=== PATIENT | female | born 1960 | race African-American/Black ===

== ENCOUNTER → 2017-04-22 | Outpatient (CLI) | payer OTHER ==
--- NOTE | 2017-04-22 09:12 | WOMENS IMAGING REPORT ---
EXAM DESCRIPTION: BONE DENSITY HIP/SPINE COMPLETED DATE/TIME: 04/22/2017 9:05 am REASON FOR STUDY: AGE-RELATED OSTEOPOROSIS; M81.0 M81.0 AGE-RELATED OSTEOPOROSIS W/O CURRENT PATHOL OGICAL FRAC COMPARISON: 04/11/2015. TECHNIQUE: Dual-Energy X-ray Absorptiometry (DEXA) of the AP Spine and Hip. LIMITATIONS: None. FINDINGS: LUMBAR SPINE: The bone mineral density (BMD) measured from L1-L4 in the AP projection correlates with a T-score of -3.7, which is osteoporosis as defined by the World Health Organization. HIP: The bone mineral density (BMD) measured in the left hip correlates with a T-score of -1.6, which is o steopenia as defined by the World Health Organization. IMPRESSION: 1. LUMBAR SPINE: OSTEOPOROSIS. 2. HIP: OSTEOPENIA. COMMENT: The World Health Organization defines low BMD as follows: T-score: Normal: Greater than -1.0 Osteopenia: Between -1.0 and -2.5 Osteoporosis: Less than -2.5 without fractures Established osteoporosis: Less than -2.5 with fractures In general, you may wish to consider: Diagnosis Treatment Follow-up DEXA Normal BMD Prevention 2-3 years Osteopenia Prevention/Therapy 1-2 years Osteoporosis Therapy Yearly TECHNICAL DOCUMENTATION: JOB ID: [id number]- All Rights Reserved
== END ==
LOC: WI 08:19
PROVIDERS: ATTEND Internal Medicine Hematology & Oncology
DX: M81.0 Age-related osteoporosis without current pathological fracture (principal)
CPT/HCPCS: 77080

== ENCOUNTER 2018-02-16 13:05 | Inpatient (IN) | payer OTHER ==
--- NOTE | 2018-02-16 15:07 | ER Document Report ---
ED General - General Mode of Arrival: Ambulatory Information source: Patient Cannot obtain history due to: Other - poor historian TRAVEL OUTSIDE OF THE [place] IN LAST 30 DAYS: No <ADI BECKFORD - Last Filed: 02/16/18 15:09> <TREV PEREZ - Last Filed: 02/18/18 11:59> - General Chief Complaint: Shortness Of Breath Stated Complaint: SHORTNESS OF BREATH Time Seen by Provider: 02/16/18 13:35 Notes: Patient is a 57-year-old female that presents to the emergency department today with complaints of feeling generally weak with associated shortness of breath over the last 3 weeks. Patient mentions that she has a history of breast cancer and she has been in remission for x1-2 years. Patient states she saw her oncologist (Dr. Yung) this week and she did blood work and her hemoglobin was high. Patient goes on to mention multiple times that she is out of her Adderall. Patient states that her primary care physician retired so she cannot get a refill. Patient went to an urgent care today prior to arrival here to get an Adderall prescription and was told to come here for her other symptoms. Patient states she "cannot write as pretty as she used to and has trouble remembering things" since being off of her Adderall. Patient denies chest pain. (ADI BECKFORD) - Related Data Allergies/Adverse Reactions: acetaminophen [From Percocet] Allergy (Severe, Verified 02/16/18 20:59) itching, nightmares oxycodone HCl [From Percocet] Allergy (Severe, Verified 02/16/18 20:59) itching, nightmares ppd converter Allergy (Severe, Uncoded 02/16/18 20:59) Past Medical History - General Information source: Patient Cannot obtain history due to: Other - poor historian - Social History Smoking Status: Never Smoker Frequency of alcohol use: None Drug Abuse: None Lives with: Family Family History: Reviewed & Not Pertinent Malignancy Medical History: Reports: Hx Breast Cancer Surgical Hx: Negative - Immunizations Hx Diphtheria, Pertussis, Tetanus Vaccination: Yes <ADI BECKFORD - Last Filed: 02/16/18 15:09> Review of Systems - Review of Systems Constitutional: See HPI, Weakness EENT: No symptoms reported Cardiovascular: denies: Chest pain Respiratory: See HPI, Short of breath Gastrointestinal: No symptoms reported Genitourinary: No symptoms reported Female Genitourinary: No symptoms reported Musculoskeletal: No symptoms reported Skin: No symptoms reported Hematologic/Lymphatic: No symptoms reported Neurological/Psychological: See HPI -: Yes All other systems reviewed and negative <ADI BECKFORD - Last Filed: 02/16/18 15:09> Physical Exam <ADI BECKFORD - Last Filed: 02/16/18 15:09> <TREV PEREZ Tabby - Last Filed: 02/18/18 11:59> - Vital signs Vitals: Temp Pulse Resp BP Pulse Ox 98.3 F 98 16 132/79 H 99 02/16/18 13:22 02/16/18 13:22 02/16/18 13:22 02/16/18 13:22 02/16/18 13:22 - Notes Notes: Physical Exam: General: Alert, very poor historian. HEENT: Normocephalic. Atraumatic. PERRL. Extraocular movements intact. Oropharynx clear. Neck: Supple. Non-tender. Respiratory: No respiratory distress. Clear and equal breath sounds bilaterally. Cardiovascular: Regular rate and rhythm. Abdominal: Normal Inspection. Non-tender. No distension. Normal Bowel Sounds. Back: Non-tender. No deformity or step off. Extremities: Moves all four extremities. Upper extremities: Normal inspection. Normal ROM. Lower extremities: Normal inspection. No edema. Normal ROM. Neurological: Normal cognition. AAOx4. Normal speech. Psychological: Appears anxious, intermittently tremulous. Skin: Warm. Dry. Normal color. (ADI BECKFORD) Course <ADI BECKFORD - Last Filed: 02/16/18 15:09> - Laboratory Result Diagrams: 02/17/18 06:20 02/17/18 06:20 - EKG Interpretation by Or EKG shows normal: Sinus rhythm Rate: Normal Rhythm: NSR - normal intervals <TREV PEREZ Tabby - Last Filed: 02/18/18 11:59> - Re-evaluation Re-evalutation: 02/16/18 19:28 Patient found to have thrombocytopenia as well as anemia. 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 Discussed this case with Dr. 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 Patient will be admitted to Dr. Ballard service with Dr. Beverly to follow. (TREV PEREZ) - Vital Signs Vital signs: Temp Pulse Resp BP Pulse Ox 98.6 F 88 16 103/52 L 100 02/17/18 04:45 02/17/18 10:02 02/17/18 11:00 02/17/18 10:01 02/17/18 11:00 - Laboratory Laboratory results interpreted by me: 02/16/18 02/16/18 02/16/18 16:46 16:46 16:46 RBC 2.34 L Hgb 7.7 L Hct 22.5 L RDW 21.1 H Plt Count 10 L* Retic Count (auto) 10.51 H Absolute Retic 0.246 H Est GFR (Non-Af Amer) 58 L Ferritin Total Bilirubin 2.1 H Direct Bilirubin 0.5 H AST 50 H Urine Blood Urine Urobilinogen Ur Leukocyte Esterase 02/16/18 02/16/18 16:46 19:00 RBC Hgb Hct RDW Plt Count Retic Count (auto) Absolute Retic Est GFR (Non-Af Amer) Ferritin 439.00 H Total Bilirubin Direct Bilirubin AST Urine Blood SMALL H Urine Urobilinogen 2.0 H Ur Leukocyte Esterase TRACE H Critical Care Note - Critical Care Note Total time excluding time spent on procedures (mins): 40 <TREV PEREZ - Last Filed: 02/18/18 11:59> Discharge <ADI BECKFORD - Last Filed: 02/16/18 15:09> - Discharge Admitting Provider: Elio Unit Admitted: Telemetry <TREV PEREZ - Last Filed: 02/18/18 11:59> - Discharge Clinical Impression: Thrombocytopenia, Lung tumor Anemia Qualifiers: Anemia type: other cause Other causes of anemia: other cause, not classified Qualified Code(s): D64.89 - Other specified anemias Condition: Fair Disposition: [facility] Scribe Attestation: 02/18/18 11:59 I personally performed the services described in the documentation, reviewed and edited the documentation which was dictated to the scribe in my presence, and it accurately records my words and actions. (TREV PEREZ) Scribe Documentation - Scribe Written by Jasmynee:: Curtis Mcclelland, 02/16/2018 1514 acting as scribe for :: Eamon <ADI BECKFORD - Last Filed: 02/16/18 15:09>
[2018-02-16] MEDS ORDERED: NORMAL SALINE 1000 ML 1,000 ML IV ONE (15:11)
--- NOTE | 2018-02-16 17:02 | EKG REPORT ---
SEVERITY:- ABNORMAL ECG - SINUS RHYTHM LEFT VENTRICULAR HYPERTROPHY : Confirmed by: Zahida Andrews MD 16-Feb-2018 17:01:42
[2018-02-16 17:35] LABS: HEMATOCRIT 22.5 % (36.0-47.0); MEAN CORPUSCULAR HEMOGLOBIN 33.1 pg (27.0-33.4); MEAN CORPUSCULAR HGB CONC 34.4 g/dL (32.0-36.0); MEAN CORPUSCULAR VOLUME 96 fl (80-97); RED BLOOD COUNT 2.34 10^6/uL (3.72-5.28); RED CELL DISTRIBUTION WIDTH 21.1 % (11.5-14.0); WHITE BLOOD COUNT 8.8 10^3/uL (4.0-10.5)
[2018-02-16 17:49] LABS: ALANINE AMINOTRANSFERASE 28 U/L (9-52); ALBUMIN 4.1 g/dL (3.5-5.0); ALKALINE PHOSPHATASE 59 U/L (38-126); ANION GAP 10 (5-19); ASPARTATE AMINO TRANSFERASE 50 U/L (14-36); BILIRUBIN,DIRECT 0.5 mg/dL (0.0-0.4); BILIRUBIN,TOTAL 2.1 mg/dL (0.2-1.3); BLOOD UREA NITROGEN 15 mg/dL (7-20); CALCIUM 8.8 mg/dL (8.4-10.2); CARBON DIOXIDE 28 mmol/L (22-30); CHLORIDE 106 mmol/L (98-107); GLUCOSE 84 mg/dL (75-110); SODIUM 143.5 mmol/L (137-145); TOTAL PROTEIN 7.3 g/dL (6.3-8.2)
[2018-02-16 18:05] LABS: HEMOGLOBIN 7.7 g/dL (12.0-15.5); PLATELET COUNT 10 10^3/uL (150-450)
[2018-02-16 18:07] LABS: ABSOLUTE LYMPHOCYTES# (MANUAL) 2.6 10^3/uL (0.5-4.7); ABSOLUTE MONOCYTES # (MANUAL) 0.5 10^3/uL (0.1-1.4); ABSOLUTE NEUTROPHILS# (MANUAL) 5.6 10^3/uL (1.7-8.2); ANISOCYTOSIS 3+; BASOPHILS % (MANUAL) 1 % (0-2); EOSINOPHILS % (MANUAL) 0 % (0-6); LYMPHOCYTES % (MANUAL) 29 % (13-45); MONOCYTES % (MANUAL) 6 % (3-13); PLATELET COMMENT DECREASED; POIKILOCYTOSIS 1+; POLYCHROMASIA 1+; SCHISTOCYTES 2+; SEGMENTED NEUTROPHILS % (MAN) 64 % (42-78); TOTAL CELLS COUNTED 100
--- NOTE | 2018-02-16 18:50 | RADIOLOGY REPORT (SQ) ---
EXAM DESCRIPTION: CT HEAD COMBO COMPLETED DATE/TIME: 02/16/2018 6:16 pm REASON FOR STUDY: hx of cancer, forgetfulness, problems writing COMPARISON: None. TECHNIQUE: Axial images acquired through the brain without and with intravenous contrast. Images re viewed with bone, brain and subdural windows. Additional sagittal and coronal reconstructions were g enerated. Images stored on PACS. All CT scanners at this facility use dose modulation, iterative reconstruction, and/or weight based d osing when appropriate to reduce radiation dose to as low as reasonably achievable (ALARA). [facility]: Dose Right [facility]: CareDose [facility]: Dose Right [facility]: Teradose 4D [facility]: [employer] CONTRAST TYPE AND DOSE: 77 mL Omnipaque 350- low osmolar. RENAL FUNCTION: BUN 15 creatinine 1 RADIATION DOSE: CT Rad equipment meets quality standard of care and radiation dose reduction techniq ues were employed. CTDIvol: 53.2 mGy. DLP: 1097 mGy-cm.. LIMITATIONS: None. FINDINGS: VENTRICLES: Normal size and contour. CEREBRUM: No masses. No hemorrhage. No midline shift. Normal muniz/white matter differentiation. No ev idence for acute infarction. No enhancing lesions. CEREBELLUM: No masses. No hemorrhage. No alteration of density. No evidence for acute infarction. No enhancing lesions. EXTRA-AXIAL SPACES: No fluid collections. No enhancing lesions. ORBITS AND GLOBE: No intra- or extraconal masses. Normal contour of globe without masses. CALVARIUM: No fracture. PARANASAL SINUSES: No fluid or mucosal thickening. SOFT TISSUES: No enhancing lesions. Normal vasculature. OTHER: No other significant finding. IMPRESSION: NORMAL BRAIN CT WITHOUT AND WITH CONTRAST. EVIDENCE OF ACUTE STROKE: NO. TECHNICAL DOCUMENTATION: JOB ID: [id number] Quality ID # [id number]: Final reports with documentation of one or more dose reduction techniques (e.g., Au tomated exposure control, adjustment of the mA and/or kV according to patient size, use of iterative reconstruction technique) 2010 [employer]- All Rights Reserved Reading location - IP/workstation name: [email or web address]
--- NOTE | 2018-02-16 19:00 | RADIOLOGY REPORT (SQ) ---
EXAM DESCRIPTION: CTA CHEST COMPLETED DATE/TIME: 02/16/2018 6:16 pm REASON FOR STUDY: SOB, hx of breast cancer COMPARISON: None. TECHNIQUE: CT scan of the chest performed using helical scanning technique with dynamic intravenous contrast injection. Images reviewed with lung, soft tissue and bone windows. Reconstructed coronal and sagittal MPR images reviewed. Additional 3 dimensional post-processing performed to develop Maximal Intensity Projection images (AK P). All images stored on PACS. All CT scanners at this facility use dose modulation, iterative reconstruction, and/or weight based d osing when appropriate to reduce radiation dose to as low as reasonably achievable (ALARA). [facility]: Dose Right [facility]: CareDose [facility]: Dose Right [facility]: Teradose 4D [facility]: [employer] CONTRAST TYPE AND DOSE: contrast/concentration: Isovue 350.00 mg/ml; Total Contrast Delivered: 77.0 ml; Total Saline Delivered: 90.0 ml Contrast bolus optimized for the pulmonary arteries. Not diagnostic for the aorta. RENAL FUNCTION: BUN 15 creatinine 1 07/07/2014 RADIATION DOSE: CT Rad equipment meets quality standard of care and radiation dose reduction techniq ues were employed. CTDIvol: 13.2 - 29.8 mGy. DLP: 962 mGy-cm. . LIMITATIONS: None. FINDINGS: LUNGS AND PLEURA: There is a spiculated 18 mm nodule in the right upper lobe posteriorly. This is larger than on the prior study. There is an area mixed ground-glass opacity in the right up per lobe with spiculations on image 32. This measures 25 mm in largest diameter. This may be slight ly more prominent. AORTA AND GREAT VESSELS: No aneurysm. Contrast bolus not optimized for the aorta. HEART: No pericardial effusion. No significant coronary artery calcifications. PULMONARY ARTERIES: No emboli visualized in the main pulmonary arteries or the segmental branches. HILAR AND MEDIASTINAL STRUCTURES: No identified masses or abnormal nodes. HARDWARE: Injection port on the left. UPPER ABDOMEN: No significant findings. Limited exam. THYROID AND OTHER SOFT TISSUES: No masses. No adenopathy. BONES: No acute or significant finding. 3D MIPS: Confirm above findings. OTHER: Right mastectomy. IMPRESSION: 1. There is no evidence of pulmonary emboli. 2. Bilateral upper lobe pulmonary masses with significant enlargement on the left. Very concerning for neoplasm. Consider PET-CT. COMMENT: Quality ID # [id number]: Final reports with documentation of one or more dose reduction techniques (e.g., Automated exposure control, adjustment of the mA and/or kV according to patient size, use of iterative reconstruction technique) TECHNICAL DOCUMENTATION: JOB ID: [id number] [employer]- All Rights Reserved Reading location - IP/workstation name: [email or web address]
[2018-02-16] MEDS ORDERED: PREDNISONE 20 MG TABLET PO ONE (19:14)
[2018-02-16 19:17] LABS: APPEARANCE,URINE CLEAR; BILIRUBIN,URINE NEGATIVE (NEGATIVE); COLOR,URINE YELLOW; GLUCOSE, URINE NEGATIVE (NEGATIVE); KETONES,URINE NEGATIVE (NEGATIVE); LEUKOCYTE ESTERASE,URINE TRACE (NEGATIVE); NITRITE,URINE NEGATIVE (NEGATIVE); PROTEIN,URINE NEGATIVE (NEGATIVE); URINE SPECIFIC GRAVITY 1.039
[2018-02-16] MEDS ORDERED: MAG HYDROX/AL HYDROX/SIMETH SUSP 30 ML UDCUP PO PRN (19:40)
[2018-02-16] MEDS ORDERED: IPRATROPIUM/ALBUTEROL 0.5-2.5 MG/3 ML AMPUL NEB PRN (19:40)
[2018-02-16] MEDS ORDERED: MAGNESIUM HYDROXIDE SUSP 30 ML UDCUP PO PRN (19:40)
[2018-02-16] MEDS ORDERED: NORMAL SALINE 1000 ML 1,000 ML IV SCH (19:45)
[2018-02-16 20:19] LABS: INTERNATIONAL RATION (INR) 1.08; PROTHROMBIN TIME 14.6 SEC (11.4-15.4)
[2018-02-16 20:27] LABS: ABSOLUTE RETICS # 0.246 10^6/uL (0.028-0.122); RETICULOCYTE COUNT (AUTO) 10.51 % (0.66-2.85)
[2018-02-16 20:33] LABS: IRON(TIBC) 92.6 ug/dL (37-170)
[2018-02-17] MEDS ORDERED: TRAZODONE HCL 50 MG TABLET PO PRN (04:38)
--- NOTE | 2018-02-17 04:38 | PDOC H&P ---
History of Present Illness Admission Date/PCP: 02/16/18 19:57 CAROL VANN MD Patient complains of: Fatigue History of Present Illness: TANA CULLEN is a 57 year old female with past medical history of ADD, anxiety and depression, breast cancer thought to be in remission for 18-24 months. She presents with 3 weeks of increasing fatigue denying bleeding, dark stools or discolored urine. Her workup reveals a hemoglobin of 7.7, platelets of only 10 AST of [address] chest with bilateral lung masses. She denies recent medication changes or homeopathic supplements. Patient's oncologist Dr. 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 Past Medical History Cardiac Medical History: Denies: Coronary Artery Disease, Myocardial Infarction, Hypertension Pulmonary Medical History: Denies: Asthma, Bronchitis, Chronic Obstructive Pulmonary Disease (COPD), Pneumonia Neurological Medical History: Denies: Seizures Malignancy Medical History: Reports: Breast Cancer Musculoskeltal Medical History: Denies: Arthritis Psychiatric Medical History: Reports: Attention Deficit Hyperactivity Disorder, Depression, General Anxiety Disorder Hematology: Reports: Anemia - hx of Past Surgical History Past Surgical History: Reports: Mastectomy Social History Information Source: Patient, Emergency Med Personnel, [facility] Lives with: Family Smoking Status: Never Smoker Frequency of Alcohol Use: Rare Drugs: None - Advance Directive Resuscitation Status: Full Code Family History Family History: Hypertension. denies: Malignancy Parental Family History Reviewed: Yes Children Family History Reviewed: Yes Sibling(s) Family History Reviewed.: Yes Medication/Allergy Home Medications: Anastrozole [Arimidex 1 mg Tablet] 1 mg PO DAILY 02/16/18 B1/B2/B3/B5/B6/Iron/Meth/Choln [Geritol Tonic] 5 ml PO MEALS 02/16/18 Bupropion HCl [Wellbutrin Xl] 300 mg PO DAILY 02/16/18 Cholecalciferol (Vitamin D3) [Vitamin D3 1000 Unit Tablet] 1,000 unit PO DAILY 02/16/18 Dextroamphetamine/Amphetamine [Adderall 30 mg Tablet] 30 mg PO 08,12 02/16/18 Ergocalciferol (Vitamin D2) [Vitamin D2] 50,000 unit PO MO@0800 02/16/18 Loratadine [Claritin 10 mg Tablet] 10 mg PO DAILYP PRN 02/16/18 Multivit-Minerals/Folic Acid [One-A-Day Vitacraves Gummie] 200 mcg PO DAILY Paroxetine Mesylate [Brisdelle] 7.5 mg PO DAILY 02/16/18 Allergies/Adverse Reactions: acetaminophen [From Percocet] Allergy (Severe, Verified 02/16/18 20:59) itching, nightmares oxycodone HCl [From Percocet] Allergy (Severe, Verified 02/16/18 20:59) itching, nightmares ppd converter Allergy (Severe, Uncoded 02/16/18 20:59) Review of Systems Constitutional: PRESENT: as per HPI, fatigue, weakness. ABSENT: chills, fever(s ), headache(s), weight gain, weight loss Eyes: ABSENT: visual disturbances Ears: ABSENT: hearing changes Cardiovascular: ABSENT: chest pain, dyspnea on exertion, edema, orthropnea, palpitations Respiratory: ABSENT: cough, hemoptysis Gastrointestinal: ABSENT: abdominal pain, constipation, diarrhea, hematemesis, hematochezia, nausea, vomiting Genitourinary: ABSENT: dysuria, hematuria Musculoskeletal: ABSENT: joint swelling Integumentary: ABSENT: rash, wounds Neurological: ABSENT: abnormal gait, abnormal speech, confusion, dizziness, focal weakness, syncope Psychiatric: PRESENT: anxiety. ABSENT: depression, homidical ideation, suicidal ideation Endocrine: ABSENT: cold intolerance, heat intolerance, polydipsia, polyuria Hematologic/Lymphatic: ABSENT: easy bleeding, easy bruising Physical Exam Vital Signs: Temp Pulse Resp BP Pulse Ox 98.4 F 92 16 99/51 L 100 02/16/18 22:17 02/16/18 22:17 02/16/18 13:22 02/16/18 22:17 02/16/18 22:17 General appearance: PRESENT: no acute distress, well-developed, well-nourished Head exam: PRESENT: atraumatic, normocephalic Eye exam: PRESENT: conjunctiva pink, EOMI, PERRLA. ABSENT: scleral icterus Ear exam: PRESENT: normal external ear exam Mouth exam: PRESENT: moist, tongue midline Neck exam: ABSENT: carotid bruit, JVD, lymphadenopathy, thyromegaly Respiratory exam: PRESENT: clear to auscultation gilberto. ABSENT: rales, rhonchi, wheezes Cardiovascular exam: PRESENT: RRR. ABSENT: diastolic murmur, rubs, systolic murmur Pulses: PRESENT: normal dorsalis pedis pul Vascular exam: PRESENT: normal capillary refill GI/Abdominal exam: PRESENT: normal bowel sounds, soft. ABSENT: distended, guarding, mass, organolmegaly, rebound, tenderness Rectal exam: PRESENT: deferred Extremities exam: PRESENT: full ROM. ABSENT: calf tenderness, clubbing, pedal edema Neurological exam: PRESENT: alert, awake, oriented to person, oriented to place , oriented to time, oriented to situation, CN II-XII grossly intact. ABSENT: motor sensory deficit Psychiatric exam: PRESENT: anxious, normal mood. ABSENT: homicidal ideation, suicidal ideation Skin exam: PRESENT: dry, intact, warm. ABSENT: cyanosis, rash Results Impressions: Chest/Abdomen CTA 02/16/18 15:11 IMPRESSION: 1. There is no evidence of pulmonary emboli. 2. Bilateral upper lobe pulmonary masses with significant enlargement on the left. Very concerning for neoplasm. Consider PET-CT. Head CT 02/16/18 15:12 IMPRESSION: NORMAL BRAIN CT WITHOUT AND WITH CONTRAST. EVIDENCE OF ACUTE STROKE: NO. Assessment & Plan - Diagnosis (1) Thrombocytopenia Is this a current diagnosis for this admission?: Yes Plan: Without active bleeding, likely secondary to ITP versus bone marrow failure. Prednisone initiated, follow-up PT/INR, hepatitis, HIV, CBC and oncology consult (2) LFT elevation Is this a current diagnosis for this admission?: Yes Plan: Follow-up hepatitis workup (3) Anemia Qualifiers: Anemia type: other cause Other causes of anemia: other cause, not classified Qualified Code(s): D64.89 - Other specified anemias Is this a current diagnosis for this admission?: Yes Plan: Likely secondary to #1, follow-up anemia workup with oncology consult. (4) Lung tumor Is this a current diagnosis for this admission?: Yes Plan: Defer to oncology. (5) Anxiety Is this a current diagnosis for this admission?: Yes Plan: Trial trazodone, consider benzodiazepine. - Time Time Spent: 50 to 70 Minutes
[2018-02-17 06:51] LABS: ANION GAP 9 (5-19); BLOOD UREA NITROGEN 11 mg/dL (7-20); CALCIUM 8.7 mg/dL (8.4-10.2); CARBON DIOXIDE 27 mmol/L (22-30); CHLORIDE 107 mmol/L (98-107); GLUCOSE 171 mg/dL (75-110); POTASSIUM 4.1 mmol/L (3.6-5.0); SODIUM 142.7 mmol/L (137-145)
[2018-02-17 07:07] LABS: HEMATOCRIT 22.7 % (36.0-47.0); MEAN CORPUSCULAR HEMOGLOBIN 32.3 pg (27.0-33.4); MEAN CORPUSCULAR HGB CONC 33.5 g/dL (32.0-36.0); MEAN CORPUSCULAR VOLUME 96 fl (80-97); RED BLOOD COUNT 2.36 10^6/uL (3.72-5.28); RED CELL DISTRIBUTION WIDTH 20.6 % (11.5-14.0); WHITE BLOOD COUNT 10.1 10^3/uL (4.0-10.5)
[2018-02-17 08:18] LABS: ABSOLUTE LYMPHOCYTES# (MANUAL) 0.8 10^3/uL (0.5-4.7); ABSOLUTE MONOCYTES # (MANUAL) 0.2 10^3/uL (0.1-1.4); ABSOLUTE NEUTROPHILS# (MANUAL) 9.1 10^3/uL (1.7-8.2); BASOPHILS % (MANUAL) 0 % (0-2); EOSINOPHILS % (MANUAL) 0 % (0-6); LYMPHOCYTES % (MANUAL) 8 % (13-45); MONOCYTES % (MANUAL) 2 % (3-13); SEGMENTED NEUTROPHILS % (MAN) 90 % (42-78); TOTAL CELLS COUNTED 100
[2018-02-17 08:22] LABS: ANISOCYTOSIS 3+; PLATELET COMMENT DECREASED; POIKILOCYTOSIS 1+; POLYCHROMASIA SLIGHT; SCHISTOCYTES 1+
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
[2018-02-17 08:24] LABS: HEMOGLOBIN 7.6 g/dL (12.0-15.5); PLATELET COUNT 5 10^3/uL (150-450)
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
[2018-02-17] MEDS ORDERED: PREDNISONE 20 MG TABLET PO SCH (10:00)
[2018-02-17] MEDS ORDERED: DOCUSATE SODIUM 100 MG CAPSULE PO SCH (10:00)
[2018-02-17 11:02] VITALS: BP 103/52
[2018-02-17 11:39] LABS: PATH REVIEW PATHOLOGIST REVIEWED
[2018-02-18 07:42] LABS: HEPATITIS A AB IGM Negative (Negative); HEPATITIS B CORE AB IGM Negative (Negative); HEPATITS B SURFACE ANTIGEN Negative (Negative)
[2018-02-18 09:44] LABS: HEPATITIS C VIRUS ANTIBODY <0.1 s/co ratio (0.0-0.9)
== END 2018-02-17 12:03 | disposition short-term general hospital (02) | DRG 547 ==
LOC: ER 13:05 → EH 19:57
PROVIDERS: ADMIT Internal Medicine; ATTEND Internal Medicine
DX: M31.1 Thrombotic microangiopathy (principal); C50.911 Malignant neoplasm of unspecified site of right female breast; M81.0 Age-related osteoporosis without current pathological fracture; F41.9 Anxiety disorder, unspecified; F32.9 Major depressive disorder, single episode, unspecified; F90.9 Attention-deficit hyperactivity disorder, unspecified type; D64.89 Other specified anemias; Z82.49 Family history of ischemic heart disease and other diseases of the circulatory system; Z17.0 Estrogen receptor positive status [ER+]; Z92.3 Personal history of irradiation
CPT/HCPCS: 36415; 70470; 71275; 80048; 80053; 80074; 81001; 82272; 82607; 82728; 82746; 83540; 83550; 84443; 84484; 85025; 85045; 85610; 86701; 93005; 93010; 96360; 99291; J7512

== ENCOUNTER → 2018-03-21 | Outpatient (CLI) | payer OTHER ==
--- NOTE | 2018-03-22 11:39 | RADIOLOGY REPORT (SQ) ---
EXAM DESCRIPTION: PET CT SKULL/THIGH COMPLETED DATE/TIME: 03/21/2018 9:17 pm REASON FOR STUDY: BREAST CANCER C50.411 MALIG NEOPLM OF UPPER-OUTER QUADRANT OF RIGHT FEMALE COMPARISON: CT chest dated 02/16/2018 and 07/07/2014. RADIONUCLIDE AND DOSE: 10 mCi F18 FDG The route of agent administration: Intravenous FASTING BLOOD SUGAR: 142 mg/dl CONTRAST TYPE AND DOSE: No CT contrast given. TECHNIQUE: Blood glucose level was verified. Above dose of FDG was injected intravenously. 2-D seg mented attenuation correction images were obtained from the base of the skull to the midthighs. Nonc ontrast CT images were obtained for attenuation correction and fusion with emission images. CT image s were performed without oral or intravenous contrast and are not sensitive for parenchymal lesions. A series of overlapping emission PET images were obtained. Images reviewed and manipulated at [facility] work station by the radiologist. Images stored on PACS. LIMITATIONS: None. FINDINGS: HEAD AND NECK: 1.3 cm nodule in the right parotid gland. Mean SUV 3.64. CHEST: Spiculated mass in the left upper lobe measuring 1.5 cm. Mean SUV 2.02. Non solid ground-gla ss nodule in the right upper lobe measuring 2.4 cm. Mean SUV 1.62. ABDOMEN AND PELVIS: No areas of abnormal metabolic activity in the abdomen or pelvis. Expected physi ologic activity is present in the genitourinary system and bowel. PROXIMAL LOWER EXTREMITIES: No areas of abnormal metabolic activity in the soft tissues of the lower extremities. BONES: No abnormal metabolic activity in the visualized skeleton. ADDITIONAL CT FINDINGS: Right mastectomy. Colonic diverticulosis. No additional significant finding s on the noncontrast CT images. OTHER: No other significant findings. Background blood pool activity mean SUV 2.31. Background live r activity mean SUV 2.94. IMPRESSION: 1. PULMONARY NODULES IN THE UPPER LOBES DESCRIBED,SEEN ON RECENT CHEST CT. SUV VALUES ARE NOT SIG NIFICANTLY ELEVATED ABOVE BACKGROUND ACTIVITY. THE NODULE IN THE LEFT UPPER LOBE, HOWEVER, DOES HAVE A SUSPICIOUS CT APPEARANCE AND HAS INCREASED IN SIZE COMPARED TO THE PRIOR STUDY IN 2014. 2. 1.3 CM NODULE IN THE RIGHT PAROTID GLAND WITH INCREASED ACTIVITY. THIS COULD BE DUE TO A PRIMARY PAROTID GLAND TUMOR VERSUS A LYMPH NODE. 3. REMAINDER OF THE PET SCAN IS OTHERWISE UNREMARKABLE. NO OTHER AREAS OF ABNORMAL ACTIVITY. TECHNICAL DOCUMENTATION: JOB ID: [id number] [employer]- All Rights Reserved Reading location - IP/workstation name: [email or web address]
== END ==
LOC: RAD 18:07
PROVIDERS: ATTEND Internal Medicine Hematology & Oncology
DX: C50.411 Malignant neoplasm of upper-outer quadrant of right female breast (principal); R91.8 Other nonspecific abnormal finding of lung field
CPT/HCPCS: 78815; A9552

== ENCOUNTER 2018-03-29 08:46 | Day surgery (SDC) | payer OTHER ==
[2018-03-29 09:11] LABS: HEMATOCRIT 37.7 % (36.0-47.0); HEMOGLOBIN 12.8 g/dL (12.0-15.5); MEAN CORPUSCULAR HEMOGLOBIN 30.8 pg (27.0-33.4); MEAN CORPUSCULAR HGB CONC 34.1 g/dL (32.0-36.0); MEAN CORPUSCULAR VOLUME 90 fl (80-97); PLATELET COUNT 324 10^3/uL (150-450); RED BLOOD COUNT 4.17 10^6/uL (3.72-5.28); RED CELL DISTRIBUTION WIDTH 15.9 % (11.5-14.0)
[2018-03-29 09:31] LABS: BLOOD UREA NITROGEN 18 mg/dL (7-20)
[2018-03-29 09:40] LABS: INTERNATIONAL RATION (INR) 0.94; PROTHROMBIN TIME 13.1 SEC (11.4-15.4)
[2018-03-29 09:41] LABS: PARTIAL THROMBOPLASTIN TIME 25.6 SEC (23.5-35.8)
[2018-03-29] MEDS ORDERED: MIDAZOLAM 2 MG/2 ML INJ ONE (11:05)
[2018-03-29] MEDS ORDERED: FENTANYL CITRATE INJ/PF 100 MCG/2 ML AMPUL ONE (11:06)
[2018-03-29] MEDS ORDERED: LIDOCAINE 1% INJ-PF (10 MG/ML) 30 ML SDV ONE (11:06)
--- NOTE | 2018-03-29 12:14 | RADIOLOGY REPORT (SQ) ---
EXAM DESCRIPTION: CHEST SINGLE VIEW COMPLETED DATE/TIME: 03/29/2018 12:06 pm REASON FOR STUDY: SOLITARY PULMONARY NODULE. POST BIOPSY COMPARISON: 07/03/2014. EXAM PARAMETERS: NUMBER OF VIEWS: One view. TECHNIQUE: Single frontal radiographic view of the chest acquired. RADIATION DOSE: NA LIMITATIONS: None. FINDINGS: LUNGS AND PLEURA: Vague nodule in the right upper lobe. No pneumothorax following left maximo ng biopsy. MEDIASTINUM AND HILAR STRUCTURES: No masses. Contour normal. HEART AND VASCULAR STRUCTURES: Heart normal in size. Normal vasculature. BONES: No acute findings. HARDWARE: Vascular port. OTHER: No other significant finding. IMPRESSION: NO PNEUMOTHORAX FOLLOWING LEFT LUNG BIOPSY. TECHNICAL DOCUMENTATION: JOB ID: [id number] [employer]- All Rights Reserved Reading location - IP/workstation name: [email or web address]
[2018-03-29 14:48] VITALS: BP 147/91
--- NOTE | 2018-03-29 14:49 | RADIOLOGY REPORT (SQ) ---
EXAM DESCRIPTION: CHEST SINGLE VIEW COMPLETED DATE/TIME: 03/29/2018 11:46 am REASON FOR STUDY: SOLITARY PULMONARY NODULE. POST BIOPSY --- 2 HR FILM COMPARISON: 03/29/2018 at 1200 hours. EXAM PARAMETERS: NUMBER OF VIEWS: One view. TECHNIQUE: Single frontal radiographic view of the chest acquired. RADIATION DOSE: NA LIMITATIONS: None. FINDINGS: LUNGS AND PLEURA: No opacities, masses or pneumothorax. No pleural effusion. MEDIASTINUM AND HILAR STRUCTURES: No masses. Contour normal. HEART AND VASCULAR STRUCTURES: Heart normal in size. Normal vasculature. BONES: No acute findings. HARDWARE: Vascular port. OTHER: No other significant finding. IMPRESSION: NO PNEUMOTHORAX 2 HOURS AFTER LEFT LUNG BIOPSY. TECHNICAL DOCUMENTATION: JOB ID: [id number] [employer]- All Rights Reserved Reading location - IP/workstation name: [facility] [email or web address]
--- NOTE | 2018-03-29 14:56 | RADIOLOGY REPORT (SQ) ---
EXAM DESCRIPTION: CT BIOPSY LUNG/MEDIASTINUM; CT NEEDLE PLACEMENT COMPLETED DATE/TIME: 03/29/2018 11:58 am; 03/29/2018 11:57 am REASON FOR STUDY: SOLITARY PULMONARY NODULE; SOLITARY PULMONARY NODULE, LUNG BIOPSY R91.1 SOLITARY PULMONARY NODULE COMPARISON: None. FLUORO TIME: 12.2 Minutes of fluoroscopy was used. [address] fluoroscopic images were obtained and saved to PACS. LIMITATIONS: None. PROCEDURE: After obtaining informed consent and explaining the risks and benefits of conscious sedat ion,the patient agreed to the procedure. The patient was brought to the CT suite and was placed prone on the CT gurney. The patient was prepped and draped in the usual sterile fashion . Axial images we re obtained for targeting of the mass in the left upper lobe. An appropriate access site was selected . IV conscious sedation was administered and physician direction by the registered nurse using 1 mill igrams of Versed and 50 micrograms of fentanyl. Physiologic monitoring was provided before, during, a nd after sedation. The total sedation time was 30 minutes. Documentation face to face time, the performing proceduralist, spent monitoring the patient: [address] scanners at this facility use dose modulation, iterative reconstruction, and/or weight based d osing when appropriate to reduce radiation dose to as low as reasonably achievable (ALARA). [facility]: Dose Right [facility]: CareDose [facility]: Dose Right [facility]: Teradose 4D [facility]: [employer] After sterile skin prep and local lidocaine for skin and deep tissue anesthesia, a coaxial biopsy nee dle was used to obtain two cores of tissue. Due to development of a small pneumothorax, no further s amples were obtained. Prior to removal of the coaxial needle from the pleural space, approximately 2 0 mL of air was aspirated from the pleural space and subsequent imaging demonstrated resolution of th e apical pneumothorax. The biopsy tissue was submitted to the lab. There were no other immediate complications. Pathology is pending at the time of dictation. IMPRESSION: SUCCESSFUL CT GUIDED PERCUTANEOUS LUNG BIOPSY OF THE LEFT UPPER LOBE. COMMENT: Patient medication list reviewed: Yes- Quality ID# [id number]:Eligible professional attests to doc umenting in the medical record they obtained, updated, or reviewed the patient's current medications. . Quality ID 145: Final reports for procedures using fluoroscopy that document radiation exposure corey emily, or exposure time and number of fluorographic images (if radiation exposure indices are not avail able) Quality ID # 436: Final reports with documentation of one or more dose reduction techniques (e.g., Au tomated exposure control, adjustment of the mA and/or kV according to patient size, use of iterative reconstruction technique) TECHNICAL DOCUMENTATION: JOB ID: [id number] 1992 [employer]- All Rights Reserved Reading location - IP/workstation name: [email or web address]
== END 2018-03-29 14:15 | disposition home or self-care (01) ==
LOC: RAD 08:46
PROVIDERS: ATTEND Internal Medicine Hematology & Oncology
DX: R91.1 Solitary pulmonary nodule (principal); J60 Coalworker's pneumoconiosis; D69.6 Thrombocytopenia, unspecified; E55.9 Vitamin D deficiency, unspecified; C50.411 Malignant neoplasm of upper-outer quadrant of right female breast; Z79.899 Other long term (current) drug therapy
CPT/HCPCS: 36415; 84520; 82565; 85027; 85610; 85730; 88305 ×2; 71045; 77012; 32405; J2250; J3010; J3490

== ENCOUNTER 2018-04-14 08:55 | Day surgery (SDC) | payer OTHER ==
[2018-04-14 09:36] LABS: HEMATOCRIT 39.7 % (36.0-47.0); HEMOGLOBIN 13.4 g/dL (12.0-15.5); MEAN CORPUSCULAR HEMOGLOBIN 29.6 pg (27.0-33.4); MEAN CORPUSCULAR HGB CONC 33.7 g/dL (32.0-36.0); MEAN CORPUSCULAR VOLUME 88 fl (80-97); PLATELET COUNT 220 10^3/uL (150-450); RED BLOOD COUNT 4.52 10^6/uL (3.72-5.28); RED CELL DISTRIBUTION WIDTH 15.6 % (11.5-14.0); WHITE BLOOD COUNT 7.7 10^3/uL (4.0-10.5)
[2018-04-14 09:42] LABS: INTERNATIONAL RATION (INR) 0.92; PROTHROMBIN TIME 12.9 SEC (11.4-15.4)
[2018-04-14 09:43] LABS: PARTIAL THROMBOPLASTIN TIME 29.5 SEC (23.5-35.8)
[2018-04-14 09:54] LABS: BLOOD UREA NITROGEN 19 mg/dL (7-20)
[2018-04-14] MEDS ORDERED: LIDOCAINE 1% INJ-PF (10 MG/ML) 30 ML SDV ONE (11:30)
[2018-04-14] MEDS ORDERED: FENTANYL CITRATE INJ/PF 100 MCG/2 ML AMPUL ONE (11:30)
[2018-04-14] MEDS ORDERED: MIDAZOLAM 2 MG/2 ML INJ ONE (11:30)
--- NOTE | 2018-04-14 12:35 | RADIOLOGY REPORT (SQ) ---
EXAM DESCRIPTION: CT CHEST WITHOUT COMPLETED DATE/TIME: 04/14/2018 12:14 pm REASON FOR STUDY: SOLITARY PULMONARY NODULE R91.1 SOLITARY PULMONARY NODULE COMPARISON: CT-guided lung biopsy 03/29/2018 PET-CT 03/21/2018 CT chest 02/16/2018, 07/07/2014 TECHNIQUE: CT scan performed of the chest without intravenous contrast. This study was performed fo r biopsy planning purposes. Images reviewed with lung, soft tissue and bone windows. Reconstructed coronal and sagittal MPR images reviewed. All images stored on PACS. All CT scanners at this facility use dose modulation, iterative reconstruction, and/or weight based d osing when appropriate to reduce radiation dose to as low as reasonably achievable (ALARA). [facility]: Dose Right [facility]: CareDose [facility]: Dose Right [facility]: Teradose 4D [facility]: [employer] RADIATION DOSE: CT Rad equipment meets quality standard of care and radiation dose reduction techniq ues were employed. CTDIvol: 4.0 - 16.6 mGy. DLP: 376 mGy-cm. mGy. LIMITATIONS: No technical limitations. FINDINGS: This CT exam was obtained for biopsy planning purposes. Prone scanning was performed of t he left lung apex to localize the posterior left lung apex nodule. Patient was prepped and draped in sterile fashion. Local lidocaine was administered for a posterior approach to the nodule. Patient received 1 mg of IV Versed at and 50 mcg of IV fentanyl for conscious sedation. There were n o immediate complications post sedation. Continuous physiologic monitoring by radiology nursing pers onnel was performed. Total sedation time [address] fluoro images were obtained today, with a total of CT fluoro exposure 7.4 mGy. Despite r ocking the gantry and using different inspiration/expiration views, I was unable to obtain a clear wi ndow for biopsy of the posterior left apical lung nodule. Biopsy was canceled. On today's scan, the posterior left upper lobe nodule measures about 13 by 10 mm in size. This is sl ightly smaller than on CT exam 02/16/2018. These findings were discussed with Dr. Yung. IMPRESSION: CT-guided left apical lung nodule biopsy canceled IV conscious sedation COMMENT: These findings were discussed with Dr. Yung TECHNICAL DOCUMENTATION: JOB ID: [id number] Quality ID # [id number]: Final reports with documentation of one or more dose reduction techniques (e.g., Au tomated exposure control, adjustment of the mA and/or kV according to patient size, use of iterative reconstruction technique) 2010 [employer]- All Rights Reserved Reading location - IP/workstation name: [email or web address]
[2018-04-14 13:56] VITALS: BP 121/76
== END 2018-04-14 13:35 | disposition home or self-care (01) ==
LOC: RAD 08:55
PROVIDERS: ATTEND Internal Medicine Hematology & Oncology
DX: R91.1 Solitary pulmonary nodule (principal); Z53.9 Procedure and treatment not carried out, unspecified reason; D69.6 Thrombocytopenia, unspecified; E55.9 Vitamin D deficiency, unspecified; C50.411 Malignant neoplasm of upper-outer quadrant of right female breast; Z79.899 Other long term (current) drug therapy; Z79.1 Long term (current) use of non-steroidal anti-inflammatories (NSAID)
CPT/HCPCS: 36415; 84520; 82565; 85027; 85610; 85730; 71250; J2250; J3010; J3490

== ENCOUNTER 2018-06-26 12:21 | Emergency (ER) | payer OTHER ==
--- NOTE | 2018-06-26 14:16 | ER Document Report ---
ED Extremity Problem, Upper - General Chief Complaint: Hand Pain Stated Complaint: HAND PAIN Time Seen by Provider: 06/26/18 14:00 Primary Care Provider: CHERIE GAMBINO DO [ACTIVE STAFF] - Follow up as needed Mode of Arrival: Ambulatory Information source: Patient Notes: 58-year-old female presents to ED for complaint of complain of pain swelling and ecchymosis to the right hand for at least a week. She states she went to her primary care doctor yesterday who told her to elevate the wrist and to wear support and to follow-up on Thursday. He states she put a band around her wrist which just made her wrist more blue and more painful. She does have a history of a mastectomy on the right side. She states she does have a history of neuropathy but this is different because it is lasting longer. Patient is alert and oriented respirations regular and unlabored speaking in full sentences walks with a even steady gait. Patient states the pain is made it so she cannot sleep for 2 days. TRAVEL OUTSIDE OF THE [place] IN LAST 30 DAYS: No - HPI Patient complains to provider of: Pain, Swelling, Right, Hand, Wrist. No: Injury Onset: Last week - Ecchymosis Recent injury: No Quality of pain: Achy, Throbbing Severity of pain: Severe Pain Level: 5 Exacerbated by: Movement, Exertion Relieved by: Rest, Positioning Similar symptoms previously: Yes Recently seen / treated by doctor: Yes - Related Data Allergies/Adverse Reactions: acetaminophen [From Percocet] Allergy (Severe, Verified 04/14/18 09:32) itching, nightmares oxycodone HCl [From Percocet] Allergy (Severe, Verified 04/14/18 09:32) itching, nightmares ppd converter Allergy (Severe, Uncoded 04/14/18 09:32) Past Medical History - General Information source: Patient - Social History Smoking Status: Never Smoker Chew tobacco use (# tins/day): No Frequency of alcohol use: None Drug Abuse: None Lives with: Family Family History: Hypertension, Other - No history of cancer.. denies: Malignancy Patient has suicidal ideation: No Patient has homicidal ideation: No - Medical History Medical History: Other - ttp - Past Medical History Cardiac Medical History: Reports: None Pulmonary Medical History: Reports: None EENT Medical History: Reports: None Neurological Medical History: Reports: None Endocrine Medical History: Reports: None Renal/ Medical History: Reports: None Malignancy Medical History: Reports: Hx Breast Cancer GI Medical History: Reports: None Musculoskeletal Medical History: Reports None Skin Medical History: Reports None Psychiatric Medical History: Reports: Hx Attention Deficit Hyperactivity Disorder, Hx Depression Traumatic Medical History: Reports: None Infectious Medical History: Reports: None Past Surgical History: Reports: Hx Mastectomy - right, Other - Port placement - Immunizations Hx Diphtheria, Pertussis, Tetanus Vaccination: Yes Review of Systems - Review of Systems Constitutional: No symptoms reported EENT: No symptoms reported Cardiovascular: No symptoms reported Respiratory: No symptoms reported Gastrointestinal: No symptoms reported Genitourinary: No symptoms reported Female Genitourinary: No symptoms reported Musculoskeletal: Other - Right hand and wrist swollen ecchymotic and painful increase range of motion due to the pain Skin: No symptoms reported Hematologic/Lymphatic: No symptoms reported Neurological/Psychological: No symptoms reported Physical Exam - Vital signs Vitals: Temp Pulse Resp BP Pulse Ox 99.1 F 109 H 16 140/96 H 97 06/26/18 12:27 06/26/18 12:27 06/26/18 12:27 06/26/18 12:27 06/26/18 12:27 Interpretation: Normal - General General appearance: Appears well, Alert - HEENT Head: Normocephalic, Atraumatic Eyes: Normal Pupils: PERRL - Respiratory Respiratory status: No respiratory distress Chest status: Nontender Breath sounds: Normal Chest palpation: Normal - Cardiovascular Rhythm: Regular Heart sounds: Normal auscultation Murmur: No - Abdominal Inspection: Normal Distension: No distension Bowel sounds: Normal Tenderness: Nontender Organomegaly: No organomegaly - Back Back: Normal, Nontender - Extremities General lower extremity: Normal inspection, Nontender, Normal color, Normal ROM, Normal temperature, Normal weight bearing. No: Reji's sign Wrist: Tender, Ecchymosis, Limited ROM - Due to pain, Other - Swelling. No: Abrasion, Axial load of thumb pain, Deformity, Dislocation, Laceration Hand: Tender, Ecchymosis, No evidence of human bite, No evidence of FB, Swelling. No: Abrasion, Deformity, Dislocation, Instability, Laceration, Nail injury, Tendon deficit - Neurological Neuro grossly intact: Yes Cognition: Normal Orientation: AAOx4 [facility] Coma Scale Eye Opening: Spontaneous Ashok Coma Scale Verbal: Oriented [facility] Coma Scale Motor: Obeys Commands [facility] Coma Scale Total: 15 Speech: Normal Motor strength normal: LUE, RUE, LLE, RLE Sensory: Normal - Psychological Associated symptoms: Normal affect, Normal mood - Skin Skin Temperature: Warm Skin Moisture: Dry Skin Color: Normal Course - Re-evaluation Re-evalutation: 06/27/18 02:11 Discussed x-rays with patient and written report of x-rays given to patient. Patient was treated with cockup splints and instructed to follow-up with primary doctor and orthopedics. Patient verbalized understanding and agreement with treatment plan. Patient was discharged home. - Vital Signs Vital signs: Temp Pulse Resp BP Pulse Ox 98.2 F 104 H 16 128/78 H 98 06/26/18 15:32 06/26/18 15:32 06/26/18 12:27 06/26/18 15:32 06/26/18 15:32 - Diagnostic Test Radiology reviewed: Image reviewed, Reports reviewed Procedures - Immobilization Right Wrist Time completed: 15:08 Immobilizer type: Cock-up Performed by: PCT Post-Proc Neuro Vasc Exam: Normal Alignment checked and good: Yes Discharge - Discharge Clinical Impression: Pain and swelling of right wrist, pain and swelling right hand, lunatotriquestral coalition right hand Condition: Stable Disposition: HOME, SELF-CARE Instructions: Family Physicians / Practices Additional Instructions: You were seen today for pain and swelling to the right hand and wrist. There is no acute injuries to the right hand or wrist. The condition you have requires elevation immobilization and anti-inflammatories until you can follow-up with an orthopedic hand surgeon. He will reevaluate and determine if you need surgery or just rest. Then treated with a cockup splint. Please keep your hand above your heart use ice for the pain and ibuprofen. SPLINT PRECAUTIONS: A splint has been placed. This will protect the area while healing begins. Your problem does NOT normally require a cast. It MUST, however, be held still! Keep the splint on ALL THE TIME until instructed to remove it by the doctor. As you begin to use the area, be careful. You shouldn't do anything which causes discomfort -- you may disturb the injury even with the splint in place. After the initial period of rest and elevation, if splint does not prevent pain when you move, come back. You may require placement of a different splint, or a cast. If there is unexpected severe pain, or numbness, discoloration, or swelling beyond the splint, you should return at once. If you feel that the splint has broken or become loose, come back. ICE & ELEVATION: Apply ice packs frequently against the painful area. Many different schedules are recommended, such as "20 minutes on, 20 minutes off" or "one hour ice, two hours rest." If you need to work, you may need to go longer between ice treatments. You should plan to have the area ice packed AT LEAST one-fourth of the time. The ice should be applied over the wrap, tape, or splint, or over a layer of cloth -- not directly against the skin. Some ice bags have a built-in cloth and can be put directly on the skin. Your injured part should be elevated as much as possible over the next 48 hours. Try to keep the injury above the level of the heart. Avoid use of the injured area. Elevation and rest will decrease the swelling. USE OF MUOH-MEE-FDZVGNW IBUPROFEN: Ibuprofen (Advil, Nuprin, Medipren, Motrin IB) is a medication for fever and pain control. In addition, it has anti- inflammatory effects which may be beneficial, especially in the treatment of injuries. It's best to take ibuprofen with food. Persons with ulcer disease or allergy to aspirin should notify their physician of this before taking ibuprofen. Ibuprofen can be given every four to six hours, for a total of four doses daily. Age Pain or fever dose Antiinflammatory dose 6-8 yr 200 mg (1 tab) 200 mg (1 tab) 9-11 yr 200 mg (1 tab) 200-400 mg (1-2 tab) 11-14 yr 200-400 mg (1-2 tab) 400 mg (2 tab) 15-adult 400 mg (2 tab) 600 mg (3 tab) FOLLOW-UP CARE: If you have been referred to a physician for follow-up care, call the physicians office for an appointment as you were instructed or within the next two days. If you experience worsening or a significant change in your symptoms, notify the physician immediately or return to the Emergency Department at any time for re-evaluation. Prescriptions: Ibuprofen [Motrin 800 mg Tablet] 800 mg PO Q8H PRN #20 tab PRN Reason: Forms: Elevated Blood Pressure, Return to Work Referrals: CHERIE GAMBINO DO [ACTIVE STAFF] - Follow up as needed
--- NOTE | 2018-06-26 14:53 | RADIOLOGY REPORT (SQ) ---
EXAM DESCRIPTION: HAND RIGHT 3 VIEWS; WRIST RIGHT 3 VIEWS COMPLETED DATE/TIME: 06/26/2018 2:32 pm REASON FOR STUDY: pain swelling ecchymosis no injury COMPARISON: None. EXAM PARAMETERS: NUMBER OF VIEWS: Three views. TECHNIQUE: AP, lateral and oblique radiographic images acquired of the right hand. LIMITATIONS: None. FINDINGS: MINERALIZATION: Normal. BONES: No acute fracture or dislocation. No worrisome bone lesions. JOINTS: No effusions. Incidental note of lunatotriquetral coalition. SOFT TISSUES: No soft tissue swelling. No foreign body. OTHER: No other significant finding. IMPRESSION: No fracture dislocation of the right hand or wrist. Incidental note of lunatotriquetral coalition. Joint spaces are otherwise well preserved. No radiographic findings to explain pain. TECHNICAL DOCUMENTATION: JOB ID: [id number] [employer] All Rights Reserved Reading location - IP/workstation name: [email or web address]
--- NOTE | 2018-06-26 14:53 | RADIOLOGY REPORT (SQ) ---
EXAM DESCRIPTION: HAND RIGHT 3 VIEWS; WRIST RIGHT 3 VIEWS COMPLETED DATE/TIME: 06/26/2018 2:32 pm REASON FOR STUDY: pain swelling ecchymosis no injury COMPARISON: None. EXAM PARAMETERS: NUMBER OF VIEWS: Three views. TECHNIQUE: AP, lateral and oblique radiographic images acquired of the right hand. LIMITATIONS: None. FINDINGS: MINERALIZATION: Normal. BONES: No acute fracture or dislocation. No worrisome bone lesions. JOINTS: No effusions. Incidental note of lunatotriquetral coalition. SOFT TISSUES: No soft tissue swelling. No foreign body. OTHER: No other significant finding. IMPRESSION: No fracture dislocation of the right hand or wrist. Incidental note of lunatotriquetral coalition. Joint spaces are otherwise well preserved. No radiographic findings to explain pain. TECHNICAL DOCUMENTATION: JOB ID: [id number] [employer]- All Rights Reserved Reading location - IP/workstation name: [email or web address]
[2018-06-26] MEDS ORDERED: IBUPROFEN 600 MG TABLET PO ONE (15:10)
[2018-06-26 15:34] VITALS: BP 128/78
== END 2018-06-26 15:34 | disposition home or self-care (01) ==
LOC: ER 12:21
DX: M89.8X4 Other specified disorders of bone, hand (principal); M79.89 Other specified soft tissue disorders; M79.641 Pain in right hand; M25.531 Pain in right wrist; M25.431 Effusion, right wrist; R58 Hemorrhage, not elsewhere classified; Z88.6 Allergy status to analgesic agent; Z88.5 Allergy status to narcotic agent; Z88.7 Allergy status to serum and vaccine
CPT/HCPCS: 99283; 73130; 73110; L3908

== ENCOUNTER → 2018-12-06 | Outpatient (CLI) | payer OTHER ==
--- NOTE | 2018-12-06 14:53 | RADIOLOGY REPORT (SQ) ---
EXAM DESCRIPTION: INJECT VENOUS ACCESS DEVICE COMPLETED DATE/TIME: 12/06/2018 11:18 am REASON FOR STUDY: R91.1 LUNG NODULE, C50.911 MALIGNANT NEOPLASM OF RIGHT BREAST IN FEMALE, COMPARISON: None. TECHNIQUE: Using aseptic technique, 10 cc of Omnipaque 300 was injected in the patient's existing le ft port. LIMITATIONS: None. FINDINGS: Contrast filled catheter but did not flow beyond the tip into the SVC. IMPRESSION: Occluded left port. COMMENT: Fluoro time 33 seconds. TECHNICAL DOCUMENTATION: JOB ID: [id number] [employer]- All Rights Reserved Reading location - IP/workstation name: [email or web address]
== END ==
LOC: RAD 09:16
PROVIDERS: ATTEND Student in an Organized Health Care Education/Training Program
DX: T82.598A Other mechanical complication of other cardiac and vascular devices and implants, initial encounter (principal); C50.911 Malignant neoplasm of unspecified site of right female breast
CPT/HCPCS: 36598

== ENCOUNTER → 2018-12-07 | Outpatient (CLI) | payer OTHER ==
--- NOTE | 2018-12-08 09:11 | RADIOLOGY REPORT (SQ) ---
EXAM DESCRIPTION: PET CT SKULL/THIGH COMPLETED DATE/TIME: 12/07/2018 7:39 pm REASON FOR STUDY: ABN DIAGNOSTIC SCAN HX OF BREAST CANCER COMPARISON: 03/21/2018 RADIONUCLIDE AND DOSE: 11.65 mCi F18 FDG The route of agent administration: Intravenous FASTING BLOOD SUGAR: 95 mg/dl CONTRAST TYPE AND DOSE: No CT contrast given. TECHNIQUE: Blood glucose level was verified. Above dose of FDG was injected intravenously. 2-D seg mented attenuation correction images were obtained from the base of the skull to the midthighs. Nonc ontrast CT images were obtained for attenuation correction and fusion with emission images. CT image s were performed without oral or intravenous contrast and are not sensitive for parenchymal lesions. A series of overlapping emission PET images were obtained. Images reviewed and manipulated at [facility] work station by the radiologist. Images stored on PACS. LIMITATIONS: None. FINDINGS: HEAD AND NECK: Hypermetabolic right parotid node 12.5 x 16.8 mm, previously 10.3 x 12.4 mm . 8.2 SUV, previously 3.6 SUV. CHEST: Hypermetabolic nodule left upper lobe 12.6 x 15.8 mm, previously 8.3 x 11.5 mm by my measureme nts. 6.1 SUV, previously 2.0 SUV. 2.5 cm ground-glass nodule right upper lobe not changed morpholog ically. 3.1 SUV, previously 1.6 SUV. 16.7 x 16.8 AP window node measuring 3.6 SUV. Previously 12.4 x 15.5 mm and non hypermetabolic. ABDOMEN AND PELVIS: No areas of abnormal metabolic activity in the abdomen or pelvis. Expected physi ologic activity is present in the genitourinary system and bowel. PROXIMAL LOWER EXTREMITIES: No areas of abnormal metabolic activity in the soft tissues of the lower extremities. BONES: No abnormal metabolic activity in the visualized skeleton. ADDITIONAL CT FINDINGS: Right mastectomy. Left-sided port. OTHER: Liver background 3.1 SUV. Blood pool 2.0 SUV. IMPRESSION: Enlarging hypermetabolic pulmonary nodules, AP window node, and right parotid node. TECHNICAL DOCUMENTATION: JOB ID: [id number] [employer]- All Rights Reserved Reading location - IP/workstation name: [email or web address]
== END ==
LOC: RAD 15:00
PROVIDERS: ATTEND Student in an Organized Health Care Education/Training Program
DX: C50.911 Malignant neoplasm of unspecified site of right female breast (principal); R91.8 Other nonspecific abnormal finding of lung field
CPT/HCPCS: 78815; A9552

== ENCOUNTER → 2018-12-22 | Outpatient (CLI) | payer OTHER ==
--- NOTE | 2018-12-22 11:57 | RADIOLOGY REPORT (SQ) ---
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 Images stored on PACS. CONTRAST TYPE AND DOSE: 15 mL Dotarem. RENAL FUNCTION: Not indicated. ACR Type II contrast agent associated with few, if any, unconfounded cases of NSF LIMITATIONS: None. FINDINGS: ANATOMY: No anomalies. Normal vascular flow voids. Pituitary fossa normal. CSF SPACES: Normal in size and contour. No hemorrhage. CEREBRUM: Sulci and gyri normal in size and contour. Scattered small subcortical and periventricular white matter lesions consistent with small vessel disease. . No evidence of hemorrhage, mass, or ex traaxial fluid collection. No abnormal enhancement post contrast. POSTERIOR FOSSA: No signal alteration. No hemorrhage. No edema, masses, or mass effect. Internal padma tory canals, cerebellopontine angles, mastoids normal. No enhancing lesions. No abnormal enhancement post contrast. DIFFUSION IMAGING: Negative for acute or subacute infarction. ORBITS: No masses. Globes normal. PARANASAL SINUSES: No fluid levels. Mucosa normal. OTHER: There is an approximately 2 cm cystic lesion closely associated with the right parotid gland. It demonstrates decreased signal intensity on T1 weighted sequences. High signal intensity on T2 th ere may be peripheral enhancement. This was present in 2018 but appears have increased in size. Lis nopathy is most likely. IMPRESSION: 1. No acute intracranial abnormalities. 2. Approximately 2 cm cystic lesion closely associated with the right parotid gland. Adenopathy is thought to be most likely. This is increased in size when compared to 2018. This was shown to be me tabolically active on recent PET-CT. EVIDENCE OF ACUTE STROKE: NO. TECHNICAL DOCUMENTATION: JOB ID: [id number] [employer]- All Rights Reserved Reading location - IP/workstation name: [email or web address]
== END ==
LOC: RAD 08:24
PROVIDERS: ATTEND Student in an Organized Health Care Education/Training Program
DX: C50.911 Malignant neoplasm of unspecified site of right female breast (principal); C34.12 Malignant neoplasm of upper lobe, left bronchus or lung; K11.6 Mucocele of salivary gland
CPT/HCPCS: 82565; 70553; A9576